=== PATIENT | female | born 1990 | race Caucasian/White ===

== ENCOUNTER → 2018-02-21 11:20 | Outpatient (CLI) | payer OTHER, SELFPAY | PROVIDERS: PCP Family Medicine; Visit Provider Internal Medicine | DX: N89.8 Other specified noninflammatory disorders of vagina (principal) | CPT/HCPCS: 87070; 87205 ==

== ENCOUNTER → 2019-05-07 12:23 | Outpatient (CLI) | payer OTHER, SELFPAY ==
[2019-05-07 13:07] LABS: Add Manual Diff / Slide Review NO; Basophils Absolute Auto 0 /uL (0-100); Basophils Percent Auto 0.2 % (0-2); Eosinophils Absolute Auto 100 /uL (0-450); Eosinophils Percent Auto 1.3 % (2-4); Hematocrit 40.1 % (36-46); Hemoglobin 13.2 g/dL (12.0-16.0); Lymphocytes Absolute Auto 2000 /uL (1100-4500); Lymphocytes Percent Auto 29.3 % (25-40); Mean Corpuscular HGB Conc 32.9 % (30-36); Mean Corpuscular Hemoglobin 28.2 PG (26-34); Mean Corpuscular Volume 85.7 fL (80-100); Monocytes Absolute Auto 400 /uL (0-900); Monocytes Percent Auto 6.5 % (3-14); Neutrophils Absolute Auto 4300 /uL (1500-7000); Neutrophils Percent Auto 62.7 % (50-75); Platelet Count 311 X10^3/uL (150-400); Red Blood Cell Count 4.68 X10^6/uL (4.0-5.2); Red Cell Distribution Width 14.2 % (11.6-14.8); White Blood Cell Count 6.9 X10^3/uL (4.5-11.0)
[2019-05-07 13:46] LABS: Appearance Urine UA CLEAR; Bilirubin Urine UA NEGATIVE (NEGATIVE); Color Urine UA YELLOW; Glucose Urine UA 1+ g/dL (Negative); Ketones Urine UA NEGATIVE (NEGATIVE); Leukocyte Esterase Urine UA NEGATIVE (NEGATIVE); Nitrite Urine UA NEGATIVE (Negative); Occult Blood Urine UA NEGATIVE (Negative); Protein Urine UA NEGATIVE (Negative); Specific Gravity Urine UA <=1.005 (1.000-1.035); Urobilinogen Urine UA 0.2 E.U./dL (0.2)
[2019-05-07 15:10] LABS: Hepatitis B Surface Antigen NEGATIVE s/c (NEGATIVE); Rubella Antibody IgG 8.8 IU/mL (>15)
[2019-05-07 15:28] LABS: HIV 1 & 2 Ab/Ag 4th Gen Combo NEGATIVE (NEGATIVE); Hep C Virus Ab w/Reflex Quant NEGATIVE s/c (NEGATIVE)
[2019-05-09 13:51] LABS: RPR Screen Nonreactive (Nonreactive)
== END ==
PROVIDERS: PCP Family Medicine; Visit Provider Family Medicine
DX: Z34.81 Encounter for supervision of other normal pregnancy, first trimester (principal)
CPT/HCPCS: 36415; 80055; 81003; 86787; 86803; 86850; 86900; 86901; 87086; 87389

== ENCOUNTER → 2019-05-09 09:41 | Outpatient (CLI) | payer OTHER, SELFPAY ==
[2019-05-09 11:26] LABS: HCG Quantitative /Beta subunit 11255 mIU/mL
== END ==
PROVIDERS: PCP Family Medicine; Visit Provider Family Medicine
DX: Z34.81 Encounter for supervision of other normal pregnancy, first trimester (principal); Z3A.01 Less than 8 weeks gestation of pregnancy
CPT/HCPCS: 36415; 84702

== ENCOUNTER → 2019-05-11 09:04 | Outpatient (CLI) | payer OTHER, SELFPAY ==
[2019-05-11 10:34] LABS: HCG Quantitative /Beta subunit 14858 mIU/mL
== END ==
PROVIDERS: PCP Family Medicine; Visit Provider Family Medicine
DX: Z34.81 Encounter for supervision of other normal pregnancy, first trimester (principal); Z3A.01 Less than 8 weeks gestation of pregnancy
CPT/HCPCS: 36415; 84702

== ENCOUNTER → 2019-05-20 12:43 | Outpatient (CLI) | payer OTHER, SELFPAY ==
--- NOTE | 2019-05-20 12:46 | DI.US.S_ITS ---
PROCEDURE: US OB <= 14 WEEKS FETUS INDICATIONS: HEART BEAT OUTSIDE/PRIOR DATING DATA: Last menstrual period (LMP): Unknown. LMP-based estimated date of delivery (VAMSHI): Unknown. First dating scan (date and location):. Estimated date of delivery (VAMSHI) from first dating scan: 12/31/19. TECHNIQUE: Real-time scanning was performed of the fetus and maternal pelvic organs, with image documentation. Endovaginal scanning was also performed to better visualize the fetus and maternal ovaries. COMPARISON: None. FINDINGS: Embryo: A single intrauterine is identified. A pole is well visualized, measuring approximately 1.5 cm in length which correlates with an estimated gestational age of 7 weeks 6 days. Cardiac motion is detected at 165 beats per minute. A yolk sac is well-visualized. No significant subchorionic hemorrhage is appreciated. Maternal organs: Ovaries demonstrate a right-sided corpus luteum. Limited images through the kidneys demonstrate no hydronephrosis. IMPRESSION: 1. Single live intrauterine at 7 weeks 6 days (VAMSHI 12/31/19). 2. No significant subchorionic hemorrhage. Dictated by: Kadeem Paniagua M.D. on 05/20/2019 at 13:45 Approved by: Kadeem Paniagua M.D. on 05/20/2019 at 13:47
== END ==
PROVIDERS: PCP Family Medicine; Visit Provider Family Medicine
DX: Z34.81 Encounter for supervision of other normal pregnancy, first trimester (principal); Z3A.01 Less than 8 weeks gestation of pregnancy
CPT/HCPCS: 76801; 76830

== ENCOUNTER → 2019-07-16 10:32 | Outpatient (CLI) | payer OTHER, SELFPAY | PROVIDERS: PCP Family Medicine; Visit Provider Obstetrics & Gynecology | DX: R30.0 Dysuria (principal); O26.899 Other specified pregnancy related conditions, unspecified trimester | CPT/HCPCS: 87077; 87086 ==

== ENCOUNTER → 2019-08-13 14:07 | Outpatient (CLI) | payer OTHER, SELFPAY ==
--- NOTE | 2019-08-13 14:09 | DI.US.S_ITS ---
PROCEDURE: US OB >= 14 WEEKS FETUS INDICATIONS: ANATOMY OUTSIDE/PRIOR DATING DATA: Last menstrual period (LMP): Unknown. LMP-based estimated date of delivery (VAMSHI): Unknown. First dating scan (date and location): 05/20/19. Estimated date of delivery (VAMSHI) from first dating scan: 12/31/19. TECHNIQUE: Real-time scanning was performed of the fetus, with image documentation and biometric measurements. Endovaginal scanning: Not performed COMPARISON: [facility], OB <= 14 WEEKS FETUS, 05/20/2019, 14:52. FINDINGS: General: A single living intrauterine gestation is present. Presentation: Breech. Placenta: Placental position is anterior/fundal, without previa. Amniotic fluid index: 13.9 cm, normal range is 5-24 cm. heart rate: 143 beats per minute. Maternal cervical canal: 4.2 cm long. Normal lower limit is 2.5 cm. biometrics: Biparietal diameter: 4.8 cm, 20 weeks 3 days Head circumference: 18.6 cm, 21 weeks zero days Abdominal circumference: 15.6 cm, 20 weeks 5 days Femur length: 3.0 cm, 19 weeks 3 days Estimated gestational age from initial scan: 20 weeks zero days Composite gestational age from present scan: 20 weeks 3 days Estimated weight and percentile: 339 g, 58th percentile Measurement variability for biometric dating: +/- 7 days from 14 weeks to 15 weeks 6 days gestation, +/- 10 days from 16 weeks to 21 weeks 6 days gestation, +/- 2 weeks from 22 weeks to 27 weeks 6 days gestation, +/- 3 weeks for 28 weeks gestation or later. weight reference: 4500 g or EFW >90/95% is considered macrosomia or large for gestational age. EFW <10% is small for gestational age. EFW 5% or less is considered intra-uterine growth restriction. Anatomic survey: Neuro: Ventricles are non-dilated at less than 10 mm. Cisterna magna is normal at 3-11 mm. Cerebellum is normal in size and morphology. Nuchal skin fold: Normal at less than 6 mm between 14-21 weeks gestational age. Face: Nose and lips, however the facial profile not well-seen due to gestational position Spine: No evidence for spina bifida. Heart: 4-chambered heart is present, with normal ventricular outflow tracts. Diaphragm: Diaphragm is intact. Stomach: Left-sided stomach is present. Kidneys: No hydronephrosis. Normal is less than 5 mm in 2nd trimester, less than 7 mm in 3rd trimester. Cord: 3-vessel cord has orthotopic insertion. Bladder: Normal in size. Extremities: All 4 extremities identified. IMPRESSION: Single living intrauterine fetus in breech presentation demonstrating expected interval growth. facial profile not well visualized. Recommend followup. Remaining anatomic survey within normal limits Dictated by: Tyler Hills M.D. on 08/13/2019 at 18:52 Approved by: Tyler Hills M.D. on 08/13/2019 at 18:55
[2019-08-20 17:10] LABS: AFP, Serum 38.3 ng/mL; Calc Gestational Age 20; Maternal Weight 155 lbs; Mother Ethnic Origin White; Number of Fetuses 1; Prev Pregnancies Down Syndrome N
== END ==
PROVIDERS: PCP Obstetrics & Gynecology; Visit Provider Obstetrics & Gynecology
DX: Z34.82 Encounter for supervision of other normal pregnancy, second trimester (principal); Z3A.20 20 weeks gestation of pregnancy
CPT/HCPCS: 36415; 76811; 82105

== ENCOUNTER → 2019-09-10 15:18 | Outpatient (CLI) | payer OTHER, SELFPAY ==
[2019-09-10 17:19] LABS: Add Manual Diff / Slide Review NO; Basophils Absolute Auto 0 /uL (0-100); Basophils Percent Auto 0.1 % (0-2); Eosinophils Absolute Auto 100 /uL (0-450); Hematocrit 33.6 % (36-46); Lymphocytes Absolute Auto 2200 /uL (1100-4500); Mean Corpuscular HGB Conc 32.9 % (30-36); Mean Corpuscular Hemoglobin 26.3 PG (26-34); Mean Corpuscular Volume 79.9 fL (80-100); Monocytes Absolute Auto 800 /uL (0-900); Monocytes Percent Auto 7.9 % (3-14); Neutrophils Absolute Auto 6800 /uL (1500-7000); Platelet Count 334 X10^3/uL (150-400); White Blood Cell Count 9.8 X10^3/uL (4.5-11.0)
[2019-09-10 17:27] LABS: Aspartate Aminotransferase 19 IU/L (14-36); Blood Urea Nitrogen 7 mg/dL (7-17); Estimated Glomerular Filt Rate > 60.0 mL/min (>60)
[2019-09-10 18:25] LABS: Creatinine Urine Random 34.3 mg/dL; Protein (Total) Urine Random 13 mg/dL (0-12); Protein Creatinine Ratio Urine 0.37 GRAM/24H
== END ==
PROVIDERS: Referring Provider Obstetrics & Gynecology; Visit Provider Obstetrics & Gynecology
DX: O13.9 Gestational [pregnancy-induced] hypertension without significant proteinuria, unspecified trimester (principal)
CPT/HCPCS: 36415; 82570; 84156; 84450; 84550; 85025

== ENCOUNTER → 2019-09-13 10:11 | Outpatient (CLI) | payer OTHER, SELFPAY ==
[2019-09-13 11:34] LABS: Collection Time Urine 24 Hours; Protein (Total) Urine Random 9 mg/dL (0-12); Total Protein 24 Hour Urine 122 mg/day (42-225); Total Volume Urine 1350 mL
== END ==
PROVIDERS: Referring Provider Obstetrics & Gynecology; Visit Provider Obstetrics & Gynecology
DX: O16.2 Unspecified maternal hypertension, second trimester (principal); R80.9 Proteinuria, unspecified
CPT/HCPCS: 84156

== ENCOUNTER → 2019-09-28 10:59 | Outpatient (CLI) | payer OTHER, SELFPAY ==
[2019-09-28 13:41] LABS: GTT (PREG) 1 Hour PP 50gm Dose 115 mg/dL (76-139)
== END ==
PROVIDERS: Referring Provider Obstetrics & Gynecology; Visit Provider Obstetrics & Gynecology
DX: O13.9 Gestational [pregnancy-induced] hypertension without significant proteinuria, unspecified trimester (principal)
CPT/HCPCS: 36415; 82950

== ENCOUNTER → 2019-11-12 10:10 | Outpatient (CLI) | payer OTHER, SELFPAY ==
--- NOTE | 2019-11-12 10:11 | DI.US.S_ITS ---
PROCEDURE: US OB LIMITED INDICATIONS: EFW OUTSIDE/PRIOR DATING DATA: Last menstrual period (LMP): Unknown. LMP-based estimated date of delivery (VAMSHI): Not applicable. First dating scan (date and location): 05/20/2019. Estimated date of delivery (VAMSHI) from first dating scan: 12/31/19. TECHNIQUE: Real-time scanning was performed of the fetus, with image documentation and biometric measurements. Endovaginal scanning: Not performed COMPARISON: [facility], [facility], 08/23/2017, 15:48. FINDINGS: General: A single living intrauterine gestation is present. Presentation: Vertex. Placenta: Placental position is anterior, without previa. Amniotic fluid index: 10.2 cm, normal range is 5-24 cm. largest vertical fluid pocket measured 8.3 cm. heart rate: 140 beats per minute. Maternal cervical canal: 4.8 cm long. Normal lower limit is 2.5 cm. biometrics: Biparietal diameter: 8.5 cm, correlating with 34 weeks and 1 day Head circumference: 32.3 cm, correlating with 36 weeks and 4 days Abdominal circumference: 31.7 cm, correlating with 35 weeks and 4 days Femur length: 6.6 cm, correlating with 33 weeks and 5 days Estimated gestational age from initial scan: 33 weeks and 0 days. Composite gestational age from present scan: 35 weeks and 0 days Estimated weight and percentile: 2581 g which correlates with the 94th percentile based on gestational age. Measurement variability for biometric dating: +/- 7 days from 14 weeks to 15 weeks 6 days gestation, +/- 10 days from 16 weeks to 21 weeks 6 days gestation, +/- 2 weeks from 22 weeks to 27 weeks 6 days gestation, +/- 3 weeks for 28 weeks gestation or later. weight reference: 4500 g or EFW >90/95% is considered macrosomia or large for gestational age. EFW <10% is small for gestational age. EFW 5% or less is considered intra-uterine growth restriction. Other: Not applicable. IMPRESSION: Single living intrauterine gestation with an estimated sonographic gestational age of approximately 35 weeks and 0 days. Expected interval growth has occurred. Estimated weight of approximately 2581 g placing the fetus within the 94th percentile based off gestational age. The 4 quadrant PK measured 10.2 cm with largest vertical fluid pocket measuring 8.3 cm. Dictated by: Alcides Castillo M.D. on 11/12/2019 at 16:37 Approved by: Alcides Castillo M.D. on 11/12/2019 at 16:42
== END ==
PROVIDERS: Referring Provider Obstetrics & Gynecology; Visit Provider Obstetrics & Gynecology
DX: Z36.89 Encounter for other specified antenatal screening (principal); O13.3 Gestational [pregnancy-induced] hypertension without significant proteinuria, third trimester; Z87.59 Personal history of other complications of pregnancy, childbirth and the puerperium; Z3A.35 35 weeks gestation of pregnancy
CPT/HCPCS: 76815

== ENCOUNTER → 2019-11-29 08:05 | Outpatient (CLI) | payer OTHER, SELFPAY ==
[2019-11-30 10:06] LABS: Strep Grp B PCR NEG for Grp B Strep
== END ==
PROVIDERS: Visit Provider Obstetrics & Gynecology
DX: Z34.03 Encounter for supervision of normal first pregnancy, third trimester (principal); Z3A.35 35 weeks gestation of pregnancy
CPT/HCPCS: 87653

== ENCOUNTER → 2019-12-06 08:54 | Outpatient (CLI) | payer OTHER, SELFPAY ==
[2019-12-06 10:05] LABS: Add Manual Diff / Slide Review NO; Basophils Absolute Auto 0 /uL (0-100); Basophils Percent Auto 0.2 % (0-2); Eosinophils Absolute Auto 100 /uL (0-450); Eosinophils Percent Auto 1.3 % (2-4); Hematocrit 30.8 % (36-46); Hemoglobin 9.8 g/dL (12.0-16.0); Lymphocytes Absolute Auto 1900 /uL (1100-4500); Lymphocytes Percent Auto 19.9 % (25-40); Mean Corpuscular HGB Conc 31.9 % (30-36); Mean Corpuscular Hemoglobin 22.8 PG (26-34); Mean Corpuscular Volume 71.6 fL (80-100); Monocytes Absolute Auto 800 /uL (0-900); Monocytes Percent Auto 8.1 % (3-14); Neutrophils Absolute Auto 6600 /uL (1500-7000); Neutrophils Percent Auto 70.5 % (50-75); Platelet Count 331 X10^3/uL (150-400); Red Blood Cell Count 4.31 X10^6/uL (4.0-5.2); Red Cell Distribution Width 17.8 % (11.6-14.8); White Blood Cell Count 9.4 X10^3/uL (4.5-11.0)
[2019-12-06 10:41] LABS: Creatinine Urine Random 15.8 mg/dL; Protein (Total) Urine Random 14 mg/dL (0-12); Protein Creatinine Ratio Urine 0.88 GRAM/24H
[2019-12-06 10:42] LABS: Aspartate Aminotransferase 20 IU/L (14-36); BUN Creatinine Ratio 10.9 (6-22); Blood Urea Nitrogen 6 mg/dL (7-17); Estimated Glomerular Filt Rate > 60.0 mL/min (>60); Uric Acid 3.2 mg/dL (2.5-6.2)
== END ==
PROVIDERS: Referring Provider Obstetrics & Gynecology; Visit Provider Obstetrics & Gynecology
DX: Z34.90 Encounter for supervision of normal pregnancy, unspecified, unspecified trimester (principal)
CPT/HCPCS: 36415; 82570; 84156; 84450; 84550; 85025

== ENCOUNTER 2019-12-07 14:06 | Observation (INO) | payer OTHER, SELFPAY ==
--- NOTE | 2019-12-07 15:15 | P.TNLD_ITS ---
Visit Information Visit Information Date of evaluation: 12/07/19 Primary OB Provider: Brittney Helms Reason for Evaluation: Yes non-stress test Comments/Additional reasons for admission: This patient is a 29yo @36+4 with proteinuria and one elevated blood pressure in the office, presenting for repeat blood pressure check and NST. The patient reports a mild JACOBS yesterday that has since resolved, no visual changes, chest pain, abdominal pain, or obstetrical complaints. Reports normotension at home, 120s/80s. [facility] Medical History Anemia (Acute) Eczema (Acute) Food allergy (Acute) Heart murmur (Acute) Seasonal allergies (Acute) UTI (urinary tract infection) (Acute) Family History Mother Asthma Gestational diabetes Depression Brother Asthma Social History marital status: pets and animals: No education level: college occupational status: employed current occupational exposures/hazards: No travel history: recent and over 6 months ago seatbelt use: always Smoking Status: Current every day smoker alcohol intake: never substance use type: does not use Review of Systems Constitutional Constitutional: Reports system reviewed and no additional complaints, except as documented Cardiovascular Cardiovascular: Reports system reviewed; no additional complaints, except as documented Respiratory Respiratory: Reports system reviewed and no additional complaints, except as documented Gastrointestinal Gastrointestinal: Reports system reviewed and no additional complaints, except as documented Genitourinary Genitourinary: Reports system reviewed and no additional complaints, except as documented Neurologic Neurologic: Reports system reviewed and no additional complaints, except as documented Exam Vital Signs (past 8 hours): 117-130/70-80, HR 90s Const General: cooperative, healthy appearing, comfortable and well developed GI Palpation: soft and No tender External Female Exam: external appearance normal Presentation: vertex Other: 0.5/50/-4. cervix soft, midline. Extrem General: normal to inspection Evaluation Evaluation Baseline heart rate: 120 Variability: Moderate (11-25) monitor accelerations: Present monitor decelerations: Absent Category of Tracing: I Comments: BPP 10/10, PK 10.9. cephalic presentation, anterior placenta. Diagnosis, Plan/Disposition Plan/Disposition Plan: This patient has reassuring testing, and the patient is normotensive throughout her stay with no severe features of preeclampsia. We discussed that with her prior episode of elevated blood pressures in the mid 2nd trimester and her elevated BP on Monday, she does meet criteria for diagnosis of preeclampsia without severe features given her persistent proteinuria. We discussed the recommendation for delivery at 37 weeks, and the patient is currently scheduled for induction at 37 weeks in the center. We discussed that induction at 37 weeks can be a several day process, that there may be an increased risk of c section, and the mechanism of induction. Conversely, we discussed that outcomes at 37 weeks are good and that the maternal risks of progression to severe disease are thought to significantly outweigh the risk of delivery in the early term period. We discussed the risk of stroke, seizure and due to worsening induced hypertensive disease, and that the illness can sometimes progress rapidly, over a number of hours. I recommended induction at 37 weeks, and the patient and her partner are planning to consider this vs. induction at 38 weeks with close and maternal montoring. The patient and her partner were counselled on covid testing prior to any induction, and the patients PIH labs revealed new anemia for which she was prescribed an iron supplement. Antepartum precautions were discussed, and I encouraged her to call or come in with any worsening symptoms. OB Disposition: home
[2019-12-07 15:25] LABS: Creatinine Urine Random 21.7 mg/dL; Protein (Total) Urine Random 12 mg/dL (0-12); Protein Creatinine Ratio Urine 0.55 GRAM/24H
== END 2019-12-07 16:45 | disposition home or self-care (01) ==
LOC: LABOR 14:11
PROVIDERS: Admitting Provider Obstetrics & Gynecology; Referring Provider Obstetrics & Gynecology; Visit Provider Obstetrics & Gynecology
DX: O14.03 Mild to moderate pre-eclampsia, third trimester (principal); O47.03 False labor before 37 completed weeks of gestation, third trimester; Z3A.36 36 weeks gestation of pregnancy
CPT/HCPCS: 59025; 59050; 76815; 82570; 84156; G0378; G0379

== ENCOUNTER → 2019-12-08 15:23 | Outpatient (CLI) | payer OTHER, SELFPAY ==
[2019-12-09 08:37] LABS: COVID19 Sendout NOT DETECTED (Not Detect)
== END ==
PROVIDERS: Visit Provider Physician Assistant
DX: Z34.90 Encounter for supervision of normal pregnancy, unspecified, unspecified trimester (principal)
CPT/HCPCS: 87635

== ENCOUNTER 2019-12-10 19:02 | Inpatient (IN) | payer OTHER, SELFPAY ==
[2019-12-10 20:26] LABS: Add Manual Diff / Slide Review NO; Basophils Absolute Auto 0 /uL (0-100); Basophils Percent Auto 0.4 % (0-2); Eosinophils Absolute Auto 100 /uL (0-450); Eosinophils Percent Auto 1.2 % (2-4); Hematocrit 30.5 % (36-46); Hemoglobin 9.7 g/dL (12.0-16.0); Lymphocytes Absolute Auto 2600 /uL (1100-4500); Lymphocytes Percent Auto 23.6 % (25-40); Mean Corpuscular HGB Conc 31.7 % (30-36); Mean Corpuscular Hemoglobin 22.6 PG (26-34); Mean Corpuscular Volume 71.5 fL (80-100); Monocytes Absolute Auto 1000 /uL (0-900); Monocytes Percent Auto 8.8 % (3-14); Neutrophils Absolute Auto 7300 /uL (1500-7000); Platelet Count 304 X10^3/uL (150-400); Red Blood Cell Count 4.27 X10^6/uL (4.0-5.2); Red Cell Distribution Width 18.1 % (11.6-14.8); White Blood Cell Count 11.1 X10^3/uL (4.5-11.0)
[2019-12-10] MEDS: DINOPROSTONE VAG (CERVIDIL) 10 MG VAG (20:37)
[2019-12-10 20:41] LABS: Aspartate Aminotransferase 25 IU/L (14-36); BUN Creatinine Ratio 15.4 (6-22); Blood Urea Nitrogen 8 mg/dL (7-17); Estimated Glomerular Filt Rate > 60.0 mL/min (>60); Uric Acid 3.3 mg/dL (2.5-6.2)
[2019-12-11 07:23] VITALS: BP 122/61
--- NOTE | 2019-12-11 07:57 | PM.OBHP.1 ---
OB HPI Date/Time Date of admission: 12/10/19 Date Patient Seen: 12/11/19 Time Patient Seen: 08:30 History of Present Condition Chief complaint: Labor & Delivery : 3 Para: 2 Estimated Date of Delivery: 12/31/19 Estimated Gestational Age (weeks): 37 Narrative: Lolly Reyes is a 29 year old @37+1 with preeclampsia without severe features, admitted for induction of labor at term. The patient reports that over the past 1-2 days, her home BPs have been more persistently 140s-150s/90s, and though she denies PIH symptoms on admissions today, she reports a vague malaise since yesterday along with increasing face and hand swelling. She reports intermittent contractions but no decreased movement, vaginal bleeding, or loss of fluid. The patient's was complicated by elevated blood pressures intermittently since the mid second trimester. The patient had normal PIH labs at that time, and was referred to [facility] for evaluation for gestational hypertension. Her BPs normalized for the majority of the , and she began having elevated blood pressures again intermittently in her 36th week, with occasional headaches and transient vision changes. This along with new onset proteinuria triggered induction of labor at 37 weeks. testing was reassuring throughout, and the patient was being followed for borderline LGA but had no other complications. Preeclampsia labs days prior to induction showed new onset anemia, and the patient was started on iron supplementation. She has a history of a delivery of a baby weighing just under 5 lbs, and then an 8#1 baby delivered via vacuum and c/b hemorrhage. 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 Indications Indication for induction OB: medical complication (PIH) History of Present care: good care Dating criteria: LMP confirmed by 1st trimester US Ultrasounds: normal 1st trimester US and normal mid trimester US Obstetrical complications: preeclampsia Medical complications: none Preadmission Labs Blood type: A (+) positive -: Antibody screen: negative, GBS status: negative, HBsAG: negative, HIV: negative and RPR/VDLR: negative -: Chlamydia screen: not detected and Gonorrhea screen: not detected -: Rubella: not immune and Varicella: immune PAP: Normal Quad screen: Normal 1 hr GTT: 115 Prior (ies) History: G1: 04/2015, 36, 4#15, M, G2: 10/2017, 39+6, 8#1, F, VAVD Evaluation Evaluation Baseline heart rate: 135 Variability: Average (6-10) monitor accelerations: Present monitor decelerations: Absent Contraction Frequency (minutes): 5 Uterine Contraction Intensity: Mild Category of Tracing: I Cervical dilation (cm): 2 Cervical effacement (%): 75 station: -3 Laboratory results: Laboratory Tests 12/10/19 12/10/19 12/10/19 20:10 20:10 20:10 WBC 11.1 H RBC 4.27 Hgb 9.7 L Hct 30.5 L MCV 71.5 L MCH 22.6 L MCHC 31.7 RDW 18.1 H Plt Count 304 Neut % (Auto) 66.0 Lymph % (Auto) 23.6 L Bee % (Auto) 8.8 Eos % (Auto) 1.2 L Baso % (Auto) 0.4 Neut # (Auto) 7300 H Lymph # (Auto) 2600 Bee # (Auto) 1000 H Eos # (Auto) 100 Baso # (Auto) 0 BUN 8 Creatinine 0.52 Estimated GFR > 60.0 BUN/Creatinine Ratio 15.4 Uric Acid 3.3 AST 25 Blood Type A Positive Antibody Screen Negative [facility] Medical History Anemia (Acute) Eczema (Acute) Food allergy (Acute) Heart murmur (Acute) Seasonal allergies (Acute) UTI (urinary tract infection) (Acute) Family History Mother Asthma Gestational diabetes Depression Brother Asthma Social History marital status: pets and animals: No education level: college occupational status: employed current occupational exposures/hazards: No travel history: recent and over 6 months ago seatbelt use: always Smoking Status: Never smoker alcohol intake: never substance use type: does not use Meds Home Medications and Allergies Home Medications Medication Instructions Recorded Confirmed Type prenat.vits,edilma,dzf-usur-etfgj 1 tab PO DAILY 05/01/19 12/10/19 History ferrous sulfate 325 mg (65 mg 325 mg PO DAILY #30 tab 05/23/20 05/26/20 Rx iron) tablet Allergies Allergy/AdvReac Type Severity Reaction Status Date / Time No Known Allergies Allergy Uncoded 10/28/19 08:12 Review of Systems Constitutional Constitutional: Reports system reviewed and no additional complaints, except as documented Cardiovascular Cardiovascular: Reports system reviewed; no additional complaints, except as documented Respiratory Respiratory: Reports system reviewed and no additional complaints, except as documented Gastrointestinal Gastrointestinal: Reports system reviewed and no additional complaints, except as documented Genitourinary Genitourinary: Reports system reviewed and no additional complaints, except as documented Neurologic Neurologic: Reports as per HPI Exam Vital Signs (past 8 hours): - 136/80, HR 88, T 37.0 12/11/19 07:23 Blood Pressure 122/61 Const General: cooperative, healthy appearing and comfortable Other: visibly increased facial swelling GI Palpation: soft and No tender External Female Exam: external appearance normal Extrem Other: 1+ edema x4 Objective Labs Result Diagrams: 12/10/19 20:10 12/10/19 20:10 Labs: Laboratory Results - last 24 hr 12/10/19 12/10/19 12/10/19 20:10 20:10 20:10 WBC 11.1 H RBC 4.27 Hgb 9.7 L Hct 30.5 L MCV 71.5 L MCH 22.6 L MCHC 31.7 RDW 18.1 H Plt Count 304 Neut % (Auto) 66.0 Lymph % (Auto) 23.6 L Bee % (Auto) 8.8 Eos % (Auto) 1.2 L Baso % (Auto) 0.4 Neut # (Auto) 7300 H Lymph # (Auto) 2600 Bee # (Auto) 1000 H Eos # (Auto) 100 Baso # (Auto) 0 BUN 8 Creatinine 0.52 Estimated GFR > 60.0 BUN/Creatinine Ratio 15.4 Uric Acid 3.3 AST 25 Blood Type A Positive Antibody Screen Negative Assessment and Plan Assessment and Plan Assessment and Plan narrative: This patient has made good change overnight with her cervidil, and is ready for pitocin induction this morning per the usual protocol. - cEFM, toco - Pit per protocol - clear liquid diet - anticipate
[2019-12-11] MEDS: LACTATED RINGERS 1,000 ML 100 ML IV ×2 (10:03→13:45)
[2019-12-11] MEDS: OXYTOCIN PREMIX 30 UNIT/500 ML PLAST..BAG IV (10:04)
--- NOTE | 2019-12-11 12:10 | PM.OBPNLAB ---
Date/Time Date Patient Seen: 12/11/19 Time Patient Seen: 12:10 Pain Control Pain control: epidural (for epidural now) Pelvic Exam Dilation (cm): 4 Effacement (%): 80 station: -3 Amniotic membrane status: Ruptured (SROM, clear) Contractions Pitocin rate (mU/min): 9 Contraction frequency (min): 2 Contraction pattern: Regular Contraction intensity: Strong/Firm Status status: Category l Heart Rate Baseline: 135 Monitor Accelerations: Present Monitor Decelerations: Absent Monitor Variability: Moderate Assessment and Plan Assessment: induction ongoing Plan: continuous present management
[2019-12-11] MEDS: FENT 2MCG/ML BUPIV 0.125% EPI 200 MCG/100 ML PLAST..BAG 10 MCG EPIDURAL (13:55)
[2019-12-11] MEDS: METHYLERGONOVINE 0.2 MG/ML VIAL IM (15:35)
--- NOTE | 2019-12-11 15:43 | PM.OBPRVD ---
 Events: Induced HTN and Labor Induction Labor & Delivery Delivery date: 12/11/19 Intrapartal events: Extended Bradycardia, Intolerance, Acceleration and Deceleration Cervical ripening method: per Cervidil protocol Induction method: per pitocin protocol Delivery augmentation: pitocin Delivery monitor: external FHT and external uterine Route of delivery: vacuum extraction Indication for instrumentation: nonreassuring FHR tracing L&D Laceration Description: None Delivery repair: vicryl Estimated blood loss (mL): 200 Anesthesia type: Epidural Complications: Cat 2 EFM, nuchal cord, vacuum delivery for cat 2 EFM, shoulder dystocia Narrative: This patient is a 29yo now P3 PPD#0 s/p VAVD. The patient developed preeclampsia without severe features, and was induced with cervidil and pitocin. The patient underwent SROM at noon for clear fluid, was found to be 5 cm dilated, and received an epidural. The patient had a cat 2 EFM shortly after the epidural and was found to be making rapid progress, had a cat 2 EFM with variable and early decelerations, and was fully dilated at 14:45. Pitocin was stopped with the cat 2 EFM. The second stage was complicated by cat 2 EFM with early, variable, and prolonged decelerations, and despite good maternal pushing efforts, the fetus required expedited delivery due to persistent cat 2 EFM no longer returning to baseline or having moderate variability during decelerations. Given the patient's good pushing effort with good descent and her proven pelvis, the decision was made to proceed to a vacuum delivery. The patient and her partner were verbally counselled on the above and that the risks of vacuum delivery including damage to the scalp, increased risk of perineal laceration, increased risk of shoulder dystocia, and increased risk of need for cesaeran section for failed operative delivery. The patient and partner verbalized understanding and desire to proceed with vacuum. EFW was 7#8, the bladder was known to be empty as the maria catheter had just been removed, suspected presentation was ROBER, and station was 1-2+ with pushing with an adequate pelvis. A Kiwi vacuum was applied to the vertex 2cm ahead of the posterior fontenelle along the sagital suture, and inflated to 10mmHg. With the next contraction, vacuum pressure was increased into the green, and gentle traction was applied to the vertex. With one maternal pushing effort, the vertex descended until the head was in OA presentation, and the vacuum was removed. With delivery of the head, a nuchal cord was found and reduced. The shoulders did not deliver with gentle traction, and Stephanie positioning was ensured and suprapubic pressure applied. Corkscrew maneuvers were used to release the right shoulder from under the pubic symphysis. Overall time from delivery of head to delivery of shoulders was less than 45 seconds, and the rest of the body delivered with ease. The cord was immediately clamped and cut and baby taken to the warmer, but baby did well. Apgars were 7+9, weight 7#15.8. The placenta delivered spontaneously shortly thereafter, and no perineal or labial lacerations were noted. Fundal massage and 30 mU of pitocin were administered, and after review of the blood pressures intrapartum, 0.2mg IM methergine was administered due to ongoing lower uterine segment atony and a history of hemorrhage. 1 hour after delivery, lochia was mild to moderate, vital signs stable, and the patient was doing well. Baby 1: Infant gender: Male Presentation: vertex position: Left Occiput Transverse (ROBER) Placenta delivery description: Spontaneous cord vessel description: Nuchal Cord score (1 min): 7 score (5 min): 9
[2019-12-11] MEDS: LANOLIN OINT 7 GM 1 APPLIC TOP (17:55)
[2019-12-11] MEDS: DERMOPLAST SPRAY 20% 60 ML 1 SPRAY TOP (17:55)
[2019-12-11 18:35] VITALS: TEMP 37.4
[2019-12-11] MEDS: IBUPROFEN 600 MG TABLET PO (18:35)
[2019-12-12] MEDS: IBUPROFEN 600 MG TABLET PO ×3 (00:58→13:32)
[2019-12-12 06:19] LABS: Add Manual Diff / Slide Review NO; Basophils Absolute Auto 100 /uL (0-100); Basophils Percent Auto 0.9 % (0-2); Eosinophils Absolute Auto 100 /uL (0-450); Hemoglobin 9.4 g/dL (12.0-16.0); Lymphocytes Absolute Auto 3000 /uL (1100-4500); Lymphocytes Percent Auto 21.4 % (25-40); Mean Corpuscular HGB Conc 31.4 % (30-36); Mean Corpuscular Hemoglobin 22.6 PG (26-34); Mean Corpuscular Volume 71.9 fL (80-100); Monocytes Absolute Auto 1300 /uL (0-900); Monocytes Percent Auto 9.2 % (3-14); Neutrophils Absolute Auto 9400 /uL (1500-7000); Neutrophils Percent Auto 67.5 % (50-75); Platelet Count 285 X10^3/uL (150-400); Red Blood Cell Count 4.18 X10^6/uL (4.0-5.2); Red Cell Distribution Width 18.1 % (11.6-14.8); White Blood Cell Count 13.9 X10^3/uL (4.5-11.0)
[2019-12-12] MEDS: PRENATAL VIT,CALC/IRON/FOLIC 1 TABLET 1 TAB PO (09:12)
--- NOTE | 2019-12-12 11:01 | P.PNOB_ITS ---
Subjective - OB Subjective Patient comments: no complaints, pain well controlled (fundal cramping pain), tolerating diet and flatus present [place] baby status: doing well and nursing well feeding status: exclusively breast feeding Narrative: This patient is a 29yo PPD#1 s/p VAVD in the setting of distress, c/b shoulder dystocia. Mom has done well overnight with no PIH symptoms or other complaints, mild lochia, ambulating, voiding, passing flatus, good pain control, and tolerating PO. Baby is doing well this AM. Patient and partner have two other small children and are highly motivated to go home. Date Patient Seen: 12/12/19 Time Patient Seen: 11:01 Exam Vital Signs (past 8 hours): 110s-120s/60s-70s overnight Const General: cooperative, healthy appearing and comfortable Resp Effort & Inspection: normal respiratory effort Auscultation: clear to auscultation bilaterally Cardio Rate: regular rate Rhythm: regular rhythm GI Palpation: soft and No tender Other: fundus firm, at u though mom sitting up. Skin General: no rashes or lesions noted Objective Labs Result Diagrams: 12/12/19 06:05 12/10/19 20:10 Labs: Laboratory Results - last 24 hr 12/12/19 06:05 WBC 13.9 H RBC 4.18 Hgb 9.4 L Hct 30.0 L MCV 71.9 L MCH 22.6 L MCHC 31.4 RDW 18.1 H Plt Count 285 Neut % (Auto) 67.5 Lymph % (Auto) 21.4 L [place] % (Auto) 9.2 Eos % (Auto) 1.0 L Baso % (Auto) 0.9 Neut # (Auto) 9400 H Lymph # (Auto) 3000 [place] # (Auto) 1300 H Eos # (Auto) 100 Baso # (Auto) 100 Assessment & Plan Assessment and Plan (1) Vacuum-assisted vaginal delivery: Status: Acute Current Visit: Yes Plan day: 1 plan OB: routine care and discharge home Comments: This patient is doing well, normotensive, meeting postoperative goals, and highly desiring discharge. We discussed signs and symptoms of worsening PIH along with routine precautions for return, and the patient will check her BPs at home and return next week for a BP check in clinic. Patient and partner vocalized understanding of discharge precautions and preeclampsia precautions, and are appropriate for discharge. Time Spent With Patient Time: Total time spent is greater than 50% in coordination of care (as documented) at patient's floor/unit and/or counseling patient: Time with patient: 15-24 minutes
--- NOTE | 2019-12-12 11:08 | PM.OBDS.1 ---
Discharge Providers Provider Date of admission: 12/10/19 19:02 Discharge Date: 12/12/19 Consults: 12/12/19 15:41 Consult to Senior Statistical Programmer Routine Comment: Discharge provider: Brittney Helms MD Summary Hospital Course Date Patient Seen: 12/12/19 Time Patient Seen: 08:11 Hospital Course: This patient was admitted for induction of labor for gestational hypertension, and was induced with cervidil and pitocin. The patient made rapid progress through active labor, and the second stage of labor was complicated by intolerance of labor necessitating assisted delivery. A vacuum assisted delivery was performed, complicated by a shoulder dystocia which was released within 45 seconds. Baby did well after delivery, and the patient had no complications. They were discharged with routine follow up, including a blood pressure check in clinic within the week. Peripartum Data Delivery Method: Assisted Delivery Laceration description: None complications: none [place] 1: Gender: Male Disposition of : home Discharge Diagnosis (1) Vacuum-assisted vaginal delivery: Status: Acute Status at Discharge Cognitive/behavioral status at discharge: oriented Functional status at discharge: independent ambulation Overall status at discharge: patient is progressing back to baseline Time Spent with Patient Time attestation: Total time spent providing and/or coordinating discharge services: Time spent: Greater than 30 minutes Objective Labs Result Diagrams: 12/12/19 06:05 12/10/19 20:10 Labs: Laboratory Results - last 24 hr 12/12/19 06:05 WBC 13.9 H RBC 4.18 Hgb 9.4 L Hct 30.0 L MCV 71.9 L MCH 22.6 L MCHC 31.4 RDW 18.1 H Plt Count 285 Neut % (Auto) 67.5 Lymph % (Auto) 21.4 L [place] % (Auto) 9.2 Eos % (Auto) 1.0 L Baso % (Auto) 0.9 Neut # (Auto) 9400 H Lymph # (Auto) 3000 [place] # (Auto) 1300 H Eos # (Auto) 100 Baso # (Auto) 100 Discharge Plan Discharge Plan Patient Disposition: Home Discharge orders & Medications Prescriptions: Continued prenat.vits,edilma,use-ueze-vvcie Tablet 1 tab PO DAILY RF: 0 ferrous sulfate 325 mg (65 mg iron) tablet 325 mg PO DAILY Qty: 30 RF: 0 Follow up/Referrals: Brittney Helms MD [Physician] - 1 Week (Blood pressure check: Please follow up with Dr. Helms on December 17 at 2:30pm Please check in 15 minutes prior to appointment time. If you have any questions/concerns or need to reschedule please call .) Diet/Activity/Treatments Diet: Regular Activity: Nothing in the vagina for 6 weeks. Avoid heavy lifting for 6 weeks. If you have increasing bleeding, fevers, chills, nausea, headaches, visual changes, chest or abdominal pain, or any other symptoms or concerns, call the clinic or come to the emergency room. Skin/Wound/Dressing Care Report to your healthcare provider any signs of infection, such as:: chills, fever, night sweats, increased pain, unusual drainage and unusual redness Visit Report/Discharge Packet Instructions: DI for Labor and Delivery, Vaginal Stand Alone Forms: Discharge: Care Visit Report Forms: Patient Portal/API, Stroke Signs & Symptoms Discharges patient from system. Discharge Date/Time: 12/12/19 16:10
[2019-12-12 13:47] VITALS: BP 122/81; PULSE 74; RESP 17; TEMP 36.8
== END 2019-12-12 16:10 | disposition home or self-care (01) | DRG 807 ==
PROVIDERS: Admitting Provider Obstetrics & Gynecology; Referring Provider Obstetrics & Gynecology; Visit Provider Obstetrics & Gynecology
DX: O14.04 Mild to moderate pre-eclampsia, complicating childbirth (principal); Z37.0 Single live birth; Z3A.37 37 weeks gestation of pregnancy; O99.02 Anemia complicating childbirth; D64.9 Anemia, unspecified; O76 Abnormality in fetal heart rate and rhythm complicating labor and delivery; O69.81X0 Labor and delivery complicated by cord around neck, without compression, not applicable or unspecified; O60.14X0 Preterm labor third trimester with preterm delivery third trimester, not applicable or unspecified
CPT/HCPCS: 01967; 36415; 59050; 59200; 59400; 76815; 84450; 84550; 85025; 86850; 86900; 86901; G0379; J2210; J2590

== ENCOUNTER → 2020-01-22 10:21 | Outpatient (CLI) | payer OTHER, SELFPAY ==
[2020-01-22 10:43] LABS: Add Manual Diff / Slide Review NO; Basophils Absolute Auto 0 /uL (0-100); Basophils Percent Auto 0.4 % (0-2); Eosinophils Absolute Auto 200 /uL (0-450); Eosinophils Percent Auto 2.4 % (2-4); Hematocrit 36.9 % (36-46); Hemoglobin 11.7 g/dL (12.0-16.0); Lymphocytes Absolute Auto 2400 /uL (1100-4500); Lymphocytes Percent Auto 28.6 % (25-40); Mean Corpuscular HGB Conc 31.8 % (30-36); Mean Corpuscular Hemoglobin 24.1 PG (26-34); Mean Corpuscular Volume 75.8 fL (80-100); Monocytes Absolute Auto 500 /uL (0-900); Monocytes Percent Auto 6.3 % (3-14); Neutrophils Absolute Auto 5200 /uL (1500-7000); Neutrophils Percent Auto 62.3 % (50-75); Platelet Count 314 X10^3/uL (150-400); Red Blood Cell Count 4.87 X10^6/uL (4.0-5.2); White Blood Cell Count 8.3 X10^3/uL (4.5-11.0)
[2020-01-22 11:10] LABS: Anisocytosis 2+
[2020-01-22 11:27] LABS: TSH w/ Reflex to FT4 0.43 uIU/mL (0.47-4.68)
[2020-01-22 11:52] LABS: Free T4, Direct Thyroxine 0.88 ng/dL (0.78-2.19)
== END ==
PROVIDERS: Referring Provider Obstetrics & Gynecology; Visit Provider Obstetrics & Gynecology
DX: R42 Dizziness and giddiness (principal)
CPT/HCPCS: 36415; 84439; 84443; 85025

== ENCOUNTER → 2023-01-02 08:37 | Outpatient (CLI) | payer OTHER, SELFPAY ==
--- NOTE | 2023-01-02 | DI.MG.S_ITS ---
BILATERAL DIGITAL SCREENING MAMMOGRAM 3D/2D WITH CAD: 01/02/2023 CLINICAL: Baseline exam. Routine screening. No prior exams were available for comparison. Both breasts are heterogeneously dense, which may obscure small masses (category c / 51-75% glandular tissue). Current study was also evaluated with a Computer Aided Detection (CAD) system. No significant masses, calcifications, or other findings are seen in either breast. IMPRESSION: NEGATIVE There is no mammographic evidence of malignancy. A 3 year screening mammogram is recommended. Based on the Tyrer Cuzick model (a risk assessment model) the patient's lifetime risk is 12.2% and her 10 year risk is 0.8%. According to the ACR, ACS, and NCCN guidelines, an annual breast MRI exam along with mammogram is recommended if the patient's lifetime risk is 20% or greater. This exam was interpreted at Station ID: [id number]. NOTE: For mammograms, a report in lay terms will be sent to the patient. Approximately 15% of breast malignancies will not be visualized mammographically. In the management of a palpable breast mass, a negative mammogram must not discourage biopsy of a clinically suspicious lesion. Electronically Signed By: Sushil hedrick/[email or web address]:01/02/2023 11:00:26 letter sent: Normal Exam ACR BI-RADS Category 1: Negative 3341F
== END ==
PROVIDERS: PCP Family Medicine; Referring Provider Family Medicine; Visit Provider Family Medicine
DX: Z12.31 Encounter for screening mammogram for malignant neoplasm of breast (principal)
CPT/HCPCS: 77063; 77067

== ENCOUNTER → 2023-08-17 09:04 | Outpatient (CLI) | payer OTHER, SELFPAY ==
[2023-08-17 10:06] LABS: Add Manual Diff / Slide Review NO; Basophils Absolute Auto 0 /uL (0-100); Basophils Percent Auto 0.4 % (0-2); Eosinophils Absolute Auto 100 /uL (0-450); Eosinophils Percent Auto 1.5 % (2-4); Hematocrit 37.8 % (36-46); Hemoglobin 12.8 g/dL (12.0-16.0); Lymphocytes Absolute Auto 1500 /uL (1100-4500); Lymphocytes Percent Auto 23.8 % (25-40); Mean Corpuscular HGB Conc 33.7 % (30-36); Mean Corpuscular Hemoglobin 28.2 PG (26-34); Mean Corpuscular Volume 83.7 fL (80-100); Monocytes Absolute Auto 700 /uL (0-900); Neutrophils Absolute Auto 3900 /uL (1500-7000); Neutrophils Percent Auto 62.3 % (50-75); Platelet Count 302 X10^3/uL (150-400); Red Blood Cell Count 4.51 X10^6/uL (4.0-5.2); Red Cell Distribution Width 14.9 % (11.6-14.8); White Blood Cell Count 6.2 X10^3/uL (4.5-11.0)
[2023-08-17 10:18] LABS: HEMOLYSIS < 15 (0-50); Iron 119 ug/dL (37-170)
[2023-08-17 10:25] LABS: Alanine Aminotransferase 22 IU/L (<35); Albumin 4.3 g/dL (3.5-5.0); Albumin Globulin Ratio 1.3 (1.0-2.8); Alkaline Phosphatase 57 U/L (38-126); Aspartate Aminotransferase 23 IU/L (14-36); BUN Creatinine Ratio 12.2 (6-22); Bilirubin Total 0.5 mg/dL (0.2-1.3); Blood Urea Nitrogen 9 mg/dL (7-17); Calcium 9.4 mg/dL (8.4-10.2); Carbon Dioxide 27 mmol/L (22-32); Chloride 103 mmol/L (98-107); Estimated Glomerular Filt Rate > 60 mL/min (>60); Globulin 3.3 g/dL (1.7-4.1); Glucose 96 mg/dL (70-100); HEMOLYSIS < 15 (0-50); Potassium 4.1 mmol/L (3.4-5.1); Sodium 139 mmol/L (137-145); Total Protein 7.6 g/dL (6.3-8.2)
[2023-08-17 10:34] LABS: Percent Iron Saturation 32 % (15-50); Total Iron Binding Capacity 368 ug/dL (265-497); Transferrin 295 mg/dL (206-381)
[2023-08-17 10:35] LABS: Free T4, Direct Thyroxine 0.95 ng/dL (0.78-2.19)
[2023-08-17 10:49] LABS: TSH w/ Reflex to FT4 0.37 uIU/mL (0.47-4.68)
[2023-08-17 10:56] LABS: Ferritin 9 ng/mL (6-137)
[2023-08-17 11:10] LABS: Vitamin B12 625 pg/mL (239-931)
== END ==
PROVIDERS: PCP Family Medicine; Referring Provider Family Medicine; Visit Provider Family Medicine
DX: D64.9 Anemia, unspecified (principal); R00.2 Palpitations; Z83.3 Family history of diabetes mellitus
CPT/HCPCS: 36415; 80053; 82607; 82728; 83540; 83550; 84439; 84443; 85025